=== PATIENT | female | born 1950 | race Two or more races ===

== ENCOUNTER → 2020-01-26 08:00 | Outpatient (CLI) | payer OTHER ==
[~2020-01-26] VITALS: Ht 152.4 cm; Wt 81.6 kg
[~2020-01-26 08:00] MED LIST: COZAAR25 MG PO
== END | disposition home or self-care (01) ==
LOC: LAB 08:00 → EDSTATUS 10:00 → ADM 10:00 → EDSTATUS 02-02 10:00 → SURH 02-02 10:00
PROVIDERS: ATTEND Orthopaedic Surgery Orthopaedic Surgery of the Spine
DX: M50.023 Cervical disc disorder at C6-C7 level with myelopathy (principal); Z01.810 Encounter for preprocedural cardiovascular examination

== ENCOUNTER → 2020-03-23 07:00 | Outpatient (CLI) | payer OTHER ==
[~2020-03-23] VITALS: Ht 152.4 cm; Wt 81.6 kg
[~2020-03-23 07:00] MED LIST changes: +COLACE100 MG PO; +DIAZEPAM5 MG PO; +PERCOCET 5-3251 EACH PO
== END | disposition home or self-care (01) ==
LOC: LAB 07:00 → ADM 11:00 → EDSTATUS 11:00 → SURH 03-30 11:00 → EDSTATUS 03-30 11:00 → SURH 03-30 12:45
PROVIDERS: ATTEND Orthopaedic Surgery Orthopaedic Surgery of the Spine
DX: U07.1 COVID-19 (principal); M50.021 Cervical disc disorder at C4-C5 level with myelopathy; M50.022 Cervical disc disorder at C5-C6 level with myelopathy; M50.023 Cervical disc disorder at C6-C7 level with myelopathy; Z01.812 Encounter for preprocedural laboratory examination

== ENCOUNTER 2020-04-27 11:15 | Inpatient (IN) | payer OTHER ==
[~2020-04-27] VITALS: Ht 152.4 cm; Wt 81.6 kg
[~2020-04-27 11:15] MED LIST changes: -COLACE100 MG PO; -DIAZEPAM5 MG PO; -PERCOCET 5-3251 EACH PO
[2020-05-04] MEDS ORDERED: PERCOCET 5-3251 EACH PO (12:20)
[2020-05-04] MEDS ORDERED: DIAZEPAM5 MG PO (12:20)
[2020-05-04] MEDS ORDERED: COLACE100 MG PO (12:20)
== END 2020-05-05 12:35 | disposition home or self-care (01) | DRG 473 ==
LOC: EDSTATUS 11:15 → ADM 11:15 → O/R 05-04 04:40 → SURH 05-04 11:15
PROVIDERS: ADMIT Orthopaedic Surgery Orthopaedic Surgery of the Spine; ATTEND Orthopaedic Surgery Orthopaedic Surgery of the Spine
PROC: 0RT30ZZ Resection of Cervical Vertebral Disc, Open Approach (ICD-10-PCS; 2020-05-04)
PROC: 07DS3ZZ Extraction of Vertebral Bone Marrow, Percutaneous Approach (ICD-10-PCS; 2020-05-04)
PROC: 0RG20A0 Fusion of 2 or more Cervical Vertebral Joints with Interbody Fusion Device, Anterior Approach, Anterior Column, Open Approach (ICD-10-PCS; principal; 2020-05-04 13:30)
DX: M50.023 Cervical disc disorder at C6-C7 level with myelopathy (principal); M48.02 Spinal stenosis, cervical region; Z20.828 Contact with and (suspected) exposure to other viral communicable diseases